=== PATIENT | male | born 1945 | race Caucasian/White ===

== ENCOUNTER → 2016-10-17 | Outpatient (CLI) | payer MEDICARE, SELFPAY | LOC: OPSV 07:52 → CT 11:00 | DX: C20 Malignant neoplasm of rectum (principal); Z85.048 Personal history of other malignant neoplasm of rectum, rectosigmoid junction, and anus; M79.89 Other specified soft tissue disorders; M25.579 Pain in unspecified ankle and joints of unspecified foot; R06.02 Shortness of breath; R10.84 Generalized abdominal pain; K59.00 Constipation, unspecified; N20.0 Calculus of kidney; E86.0 Dehydration | CPT/HCPCS: 36415; 71260; 74160; 82565; 84520; 96360; 96361; J7030; J7050; Q9962 ==